=== PATIENT | female | born 1975 | race Two or more races ===

== ENCOUNTER 2016-09-28 23:00 | Inpatient (IN) | payer SELFPAY ==
[~2016-09-28] VITALS: Ht 162.6 cm; Wt 85.0 kg
[~2016-09-28 23:00] MED LIST: ACETAMINOPHEN 650 MG/20.3 ML UDC ONE; ACETAMINOPHEN 650 MG/20.3 ML UDC PO PRN; DEXAMETHASONE 4 MG/ML, 1ML IV SCH; DEXAMETHASONE 4 MG/ML, 1ML ONE; DIPHENHYDRAMINE 50 MG/ML, 1ML ONE; MORPHINE SULFATE 4 MG/ML, 1ML ONE; OMNIPAQUE 350 MG/ML, 100ML BOTTLE ONE; ONDANSETRON 2MG/ML, 2ML ONE
[2016-09-29] MEDS ORDERED: AMPICILLIN/SULBACTAM 3 GM in SODIUM CHLORIDE 0.9% 100 ML IV SCH
[2016-09-29] MEDS: HEPARIN 5,000 UNITS/ML, 1ML SQ SCH ×3 (00:08→22:00)
[2016-09-29] MEDS: AMPICILLIN/SULBACTAM 3 GM in SODIUM CHLORIDE 0.9% 100 ML IV SCH ×2 (03:00→18:00)
[2016-09-29] MEDS ORDERED: AMPICILLIN/SULBACTAM 3 GM in SODIUM CHLORIDE 0.9% 100 ML IV ONE (18:00)
[2016-09-29] MEDS ORDERED: ACETAMINOPHEN 650 MG SUPP PR PRN (18:00)
[2016-09-29 19:00] VITALS: BP 107/69
[2016-09-29] MEDS: OXYcodone 5 MG/5 ML ORAL.SOL UDC PO PRN (21:42)
[2016-09-29] MEDS: PLEASE ENTER HEIGHT AND WEIGHT MC SCH (22:00)
[2016-09-29] MEDS: PLEASE ENTER ALLERGIES MC SCH ×2 (22:00)
[2016-09-30 02:11] VITALS: BP 113/67
[2016-09-30] MEDS: ONDANSETRON 2MG/ML, 2ML IV PRN ×3 (05:33→23:14)
[2016-09-30] MEDS: DEXAMETHASONE 4 MG/ML, 1ML IVPush SCH ×3 (05:36→21:18)
[2016-09-30] MEDS: AMPICILLIN/SULBACTAM 3 GM in SODIUM CHLORIDE 0.9% 100 ML IV SCH ×6 (05:40→23:38)
[2016-09-30] MEDS: HEPARIN 5,000 UNITS/ML, 1ML SQ SCH ×4 (05:42→21:18)
[2016-09-30] MEDS: PLEASE ENTER HEIGHT AND WEIGHT MC SCH (05:44)
[2016-09-30] MEDS: SODIUM CHLORIDE 0.9% 1,000 ML IV SCH ×3 (05:49→21:29)
[2016-09-30 05:55] LABS: BLOOD UREA NITROGEN 13 mg/dL (7-18)
[2016-09-30] MEDS: PLEASE ENTER ALLERGIES MC SCH ×2 (06:00)
[2016-09-30 07:40] VITALS: BP 104/66
[2016-09-30] MEDS ORDERED: AMOXICILLIN/CLAV 875-125MG TABLET PO SCH (09:00)
[2016-09-30] MEDS: OXYcodone 5 MG/5 ML ORAL.SOL UDC PO PRN ×3 (09:00→23:33)
[2016-09-30 14:17] LABS: ASPARTATE AMINO TRANSFERASE 15 U/L (15-37); BLOOD UREA NITROGEN 11 mg/dL (7-18)
[2016-09-30 15:30] VITALS: BP 110/70
[2016-09-30 19:42] VITALS: BP 112/73
[2016-10-01 02:40] VITALS: BP 117/72
[2016-10-01] MEDS: AMPICILLIN/SULBACTAM 3 GM in SODIUM CHLORIDE 0.9% 100 ML IV SCH ×4 (05:44→23:57)
[2016-10-01] MEDS: HEPARIN 5,000 UNITS/ML, 1ML SQ SCH ×3 (05:44→21:48)
[2016-10-01 06:26] LABS: BLOOD UREA NITROGEN 10 mg/dL (7-18)
[2016-10-01 07:35] VITALS: BP 120/73
[2016-10-01] MEDS: DEXAMETHASONE 4 MG/ML, 1ML IVPush SCH (08:48)
[2016-10-01] MEDS: SODIUM CHLORIDE 0.9% 1,000 ML IV SCH (08:49)
[2016-10-01] MEDS: ONDANSETRON 2MG/ML, 2ML IV PRN (08:54)
[2016-10-01] MEDS: OXYcodone 5 MG/5 ML ORAL.SOL UDC PO PRN ×2 (12:21→21:17)
[2016-10-01 12:25] VITALS: BP 145/86
[2016-10-01] MEDS ORDERED: IBUP-1222 PO (16:27)
[2016-10-01] MEDS ORDERED: AMOX-291 PO (16:27)
[2016-10-01] MEDS ORDERED: PRED20TA PO (16:27)
[2016-10-01 19:03] VITALS: BP 106/68
[2016-10-02 01:11] VITALS: BP 104/64
[2016-10-02] MEDS: HEPARIN 5,000 UNITS/ML, 1ML SQ SCH (05:43)
[2016-10-02] MEDS: AMPICILLIN/SULBACTAM 3 GM in SODIUM CHLORIDE 0.9% 100 ML IV SCH (05:43)
[2016-10-02 06:46] VITALS: BP 112/71
[2016-10-02 09:34] VITALS: BP 102/65
[2016-10-02 09:49] LABS: BLOOD UREA NITROGEN 8 mg/dL (7-18)
== END 2016-10-02 10:40 | disposition home or self-care (01) | DRG 872 ==
LOC: ED 23:00 → EDIP 23:08 → 4NOR 23:30 → DCLOUNGE 10-02 10:25
PROVIDERS: ADMIT Internal Medicine; ATTEND Internal Medicine
DX: A41.9 Sepsis, unspecified organism (principal); E87.1 Hypo-osmolality and hyponatremia; J03.90 Acute tonsillitis, unspecified; R13.10 Dysphagia, unspecified; Z90.49 Acquired absence of other specified parts of digestive tract
CPT/HCPCS: 36415; 70491; 80048; 80053; 82040; 83605; 85025; 85651; 86141; 86308; 87040; 87081; 87880; 99285; J0295; J1100; J1644; J2405; Q9967; J7030; J7512